=== PATIENT | male | born 1970 | race Caucasian/White ===

== ENCOUNTER 2020-10-17 02:46 | Emergency (ER) | payer OTHER ==
[~2020-10-17] VITALS: Ht 182.9 cm; Wt 112.5 kg
[2020-10-17] MEDS ORDERED: LISINOPRIL20 MG PO (02:54)
[2020-10-17 03:14] LABS: ABSOLUTE LYMPHOCYTES 1.1 thou/uL (0.8-5.3); ABSOLUTE MONOCYTES 0.5 thou/uL (0.0-1.2); ABSOLUTE NEUTROPHILS 4.3 thou/uL (1.6-8.1); BASOPHILS 0.3 %; HEMATOCRIT 42.8 % (42.0-52.0); HEMOGLOBIN 14.8 gm/dL (14.0-18.0); LYMPHOCYTES 18.1 %; MCH 28.9 pg (26.0-34.0); MCHC 34.5 g/dL (28.0-37.0); MCV 83.6 fL (80.0-100.0); MONOCYTES 9.1 %; MPV 8.8 fl. (7.2-11.1); NUCLEATED RBCS 0 /100WBC; PLATELET COUNT* 200 thou/uL (150-400); POLYS 72.5 %; RBC 5.12 mil/uL (4.50-6.00); RDW-CV 12.9 % (10.5-14.5); WBC 5.9 thou/uL (4.0-11.0)
[2020-10-17 03:28] LABS: CALCIUM 8.4 mg/dL (8.5-10.1); CREATININE 1.3 mg/dL (0.6-1.3); POTASSIUM 3.1 mmol/L (3.5-5.1)
[2020-10-17 03:29] LABS: INR 1.1; PROTIME 11.2 Seconds (9.20-11.50)
[2020-10-17 03:33] LABS: ALBUMIN 3.3 g/dL (3.4-5.0); TOTAL BILIRUBIN 0.6 mg/dL (<0.1-1.0); TOTAL PROTEIN 6.9 g/dL (6.4-8.2)
[2020-10-17] MEDS ORDERED: ZOFRAN ODT4 MG PO (06:06)
[2020-10-17 06:16] VITALS: BP 130/75
--- NOTE | 2020-10-17 12:45 | EKG ---
[place] [address] ELECTROCARDIOGRAM REPORT Name: SINAN CHASE Room: [facility]#: [id number] Admission: 10/17/20 Attend Phys: Discharge: 10/17/20 Date of : 70 Date of Service: 10/17/20 0323 Report #: [id number] THIS REPORT FOR: //name// [facility] ED Test Date: 2020-10-17 Test Time: 03:23:23 Pat Name: SINAN CHASE Department: Room: Gender: Ball Sorter: : 1970 Requested By: Cassi Almonte Order Number: [id number] MD: Greg Cavanaugh Measurements Intervals [place] Rate: 88 P: 24 MT: 162 QRS: 19 QRSD: 100 T: -31 QT: 376 QTc: 455 Interpretive Statements Sinus rhythm Probable left atrial enlargement Borderline T abnormalities, diffuse leads No previous ECG available for comparison Electronically Signed On 10-17-2020 12:45:39 BOX LINER by Greg Cavanaugh [email or web address] <ELECTRONICALLY SIGNED> By: Greg Cavanaugh MD, [facility] 10/17/20 1245 0323 0323 Greg Cavanaugh MD, [facility] /EPI
== END 2020-10-17 06:18 | disposition home or self-care (01) ==
LOC: M.ERS 02:46
PROVIDERS: Emergency Medicine
DX: E87.1 Hypo-osmolality and hyponatremia (principal); U07.1 COVID-19; E87.6 Hypokalemia; I10 Essential (primary) hypertension; Z79.899 Other long term (current) drug therapy